=== PATIENT | female | born 2000 | race Caucasian/White ===

== ENCOUNTER 2021-04-08 09:12 | Day surgery (SDC) | payer BC, OTHER ==
[~2021-04-08] VITALS: Ht 170.2 cm; Wt 52.2 kg
[2021-04-08 09:52] VITALS: BP 109/61; PULSE 53; TEMP 97.8
[2021-04-08 12:00] VITALS: BP 105/69; PULSE 46
--- NOTE | 2021-04-08 12:00 | NUR ---
Patient arrived on cart from endo suite. She is alert and oriented. Vitals obtained and warm blankets provided. Patient was assisted into new gown.
[2021-04-08 12:15] VITALS: BP 101/62; PULSE 45
--- NOTE | 2021-04-08 12:15 | NUR ---
Patient requested buttered toast and water to drink. Vitals obtained. Expressed desire to be dischaged. Call wilson at bedside.
[2021-04-08 12:17] VITALS: BP 105/69; PULSE 46
--- NOTE | 2021-04-08 12:33 | NUR ---
IV discontinued. Pressure bandage applied. No redness or swelling. Catheter tip intact. Discharge instructions reviewed with patient, who verbalized understanding and signed the related paperwork. Patient was escorted downstairs to the main patient entrence by RIMMA Shah. Patient was transferred into the care of Waqar, who is present to drive home.
== END 2021-04-08 12:30 | disposition home or self-care (01) ==
LOC: SDCO 09:12
DX: K29.50 Unspecified chronic gastritis without bleeding (principal); R63.4 Abnormal weight loss; R19.7 Diarrhea, unspecified; R10.13 Epigastric pain; R19.4 Change in bowel habit; R19.5 Other fecal abnormalities; F12.90 Cannabis use, unspecified, uncomplicated; Z79.899 Other long term (current) drug therapy; Z80.3 Family history of malignant neoplasm of breast
CPT/HCPCS: J2704; J7030